=== PATIENT | male | born 1985 | race Caucasian/White ===

== ENCOUNTER 2016-11-21 19:10 | Emergency (ER) | payer OTHER, SELFPAY ==
[~2016-11-21] VITALS: Ht 190.5 cm; Wt 94.5 kg
[2016-11-21 19:26] VITALS: BP 145/77
[2016-11-21] MEDS ORDERED: HYDROmorphone 1 MG/ML, 1ML ONE (19:55)
[2016-11-21] MEDS ORDERED: HYDROmorphone 1 MG/ML, 1ML IVPush STA (19:55)
== END 2016-11-21 21:08 | disposition home or self-care (01) ==
LOC: ED 21:02
DX: S86.011A Strain of right Achilles tendon, initial encounter (principal); X58.XXXA Exposure to other specified factors, initial encounter; Y93.66 Activity, soccer; Y92.39 Other specified sports and athletic area as the place of occurrence of the external cause; Y99.8 Other external cause status
CPT/HCPCS: 29505; 73610; 96374; 99284; J1170